=== PATIENT | female | born 1955 | race Caucasian/White ===

== ENCOUNTER 2018-07-21 09:19 | Emergency (ER) | payer OTHER ==
[~2018-07-21] VITALS: Ht 167.6 cm; Wt 78.0 kg
[2018-07-21 09:24] VITALS: BP 122/85
== END 2018-07-21 10:52 | disposition home or self-care (01) ==
LOC: ED 10:50
DX: M25.511 Pain in right shoulder (principal); W01.0XXA Fall on same level from slipping, tripping and stumbling without subsequent striking against object, initial encounter; Y93.89 Activity, other specified; Y92.009 Unspecified place in unspecified non-institutional (private) residence as the place of occurrence of the external cause; Y99.8 Other external cause status
CPT/HCPCS: 99283

== ENCOUNTER 2019-01-19 13:28 | Emergency (ER) | payer SELFPAY ==
[~2019-01-19] VITALS: Ht 170.2 cm; Wt 70.0 kg
[2019-01-19 13:37] VITALS: BP 140/89
[2019-01-19] MEDS ORDERED: DIPH,PERTUSS(ACELL),TET VAC/PF 0.5 ML IM-VACC ONE (14:00)
[2019-01-19] MEDS ORDERED: LIDOCAINE 1%, 10ML INFIL ONE (14:00)
[2019-01-19] MEDS ORDERED: LIDOCAINE-MPF 1%, 5ML ONE (14:05)
--- NOTE | 2019-01-19 14:59 | NUR ---
SUTURES COMPLETED. TECH AT BEDSIDE TO DRESS WOUND
== END 2019-01-19 15:04 | disposition home or self-care (01) ==
LOC: ED 13:51
DX: S51.812A Laceration without foreign body of left forearm, initial encounter (principal); W25.XXXA Contact with sharp glass, initial encounter; Y93.89 Activity, other specified; Y92.009 Unspecified place in unspecified non-institutional (private) residence as the place of occurrence of the external cause; Y99.8 Other external cause status
CPT/HCPCS: 12032; 90471; 90715